=== PATIENT | female | born 1995 | race Caucasian/White ===

== ENCOUNTER 2019-08-14 20:27 | Observation (INO) | payer OTHER, SELFPAY ==
[2019-08-14] VITALS (37 sets, daily range): BP systolic 94–108; BP diastolic 54–73; PULSE 91–125; TEMP 37.2; O2SAT 94–99; BMI 25.7
--- NOTE | 2019-08-14 20:27 | OBADM ---
This patient, Madina Blackman, admitted to the OB room OB Post 117 for observation. Patient/family oriented to hospital policies and general routines including ID bracelet, bed and alarms, visiting hours, pain management, procedures, bathroom and other care routines, personal items, smoking policy, room service/diet, and visiting hours. Patient/Family are encouraged to report perceived risks to care and to ask questions if they do not understand what they are told or what they should do.
--- NOTE | 2019-08-14 20:50 | PC.NURSE ---
Updated Dr. Waterman on patient arrival to OB unit with complaint of back pain and pressure. Patient reports back pain starting at 1500 08/14/2019. Patient reports pink tinged discharge occasionally while wiping. Patient states she has hx of contractions in current . Patient reports emesis today and constant nausea throughout the day today. Vital signs: 107/70, 119 HR, 99.5 F, 16 R. FHT 160's with minimal variability. Uterine irritability present. Orders given.
--- NOTE | 2019-08-14 21:10 | PC.NURSE ---
Plan of care discussed with patient. Patient agrees with plan of care. IV placed and labs collected during the IV placement.
[2019-08-14 21:16] LABS: Basophils Absolute Auto 0.1 K/mm3 (0.0-0.1); Basophils Percent Auto 0.4 % (0.2-1.2); Eosinophils Absolute Auto 0.3 K/mm3 (0-0.3); Eosinophils Percent Auto 1.6 % (0-4.4); Hematocrit 33.2 % (37.0-47.0); Hemoglobin 11.2 g/dL (12.0-15.0); Immature Granulocyte Absolute 0.33 K/mm3 (0.00-0.031); Lymphocytes Absolute Auto 3.05 K/mm3 (0.9-3.2); Lymphocytes Percent Auto 18.4 % (18.3-44.2); Mean Corpuscular HGB Conc 33.7 g/dl (32-36); Mean Corpuscular Hemoglobin 31.5 pg (26-34); Mean Corpuscular Volume 93.5 fl (80-100); Mean Platelet Volume 10.1 fl (7.4-10.4); Monocytes Absolute Auto 1.3 K/mm3 (0.1-0.6); Monocytes Percent Auto 7.5 % (2.6-8.5); Neutrophils Absolute Auto 11.6 K/mm3 (1.3-6.7); Neutrophils Percent Auto 70.1 % (45.5-73.1); Platelet Count Result 195 k/mm3 (150-375); Red Blood Count 3.55 M/mm3 (4.2-5.4); White Blood Count 16.6 K/mm3 (4.5-10.0)
[2019-08-14] MEDS: LACTATED RINGERS 1,000 ML 99 ML IV CONT (21:17)
[2019-08-14] MEDS: ONDANSETRON INJ 4 MG/2 ML VIAL IV PUSH (21:17)
[2019-08-14 21:20] LABS: Add Urine Microscopic? YES; Appearance Urine Cloudy (Clear); Bacteria Urine Trace /hpf; Bilirubin Urine Negative (Negative); Blood Urine 2+ (Negative); Color Urine Straw (Yellow); Glucose Urine UA Negative (Negative); Ketones Urine Negative (Negative); Leukocyte Esterase Ur Trace LEU/UL (Negative); Mucus Urine Rare /lpf; Nitrate Urine Negative (Negative); Protein Urine Negative (Negative); RBC Urine >75 /hpf (0-2); Specific Grav Ur 1.011 (1.001-1.035); Squamous Epithelial Cell Urine Many /hpf (Few); Urobilinogen Urine Negative mg/dL (<2.0)
--- NOTE | 2019-08-14 21:20 | PC.NURSE ---
Patient educated on speculum exam and FFN. Patient agrees with plan of care. Speculum exam performed. No blood visualized during speculum exam. FFN collected.
[2019-08-14 21:27] LABS: Alanine Aminotransferase 10 U/L (4-35); Albumin Level 3.5 g/dL (3.5-5.1); Alkaline Phosphatase 92 U/L (38-126); Aspartate Amino Transferase 18 U/L (14-36); Bilirubin,Total 0.1 mg/dL (0.2-1.3); Blood Urea Nitrogen 5 mg/dL (7-17); Calcium 9.7 mg/dL (8.4-10.2); Carbon Dioxide 23 mmol/L (22-30); Chloride 101 mmol/L (98-107); Estimated Glomerular Filt Rate > 60; Glucose 95 mg/dL (65-105); Potassium 3.6 mmol/L (3.4-5.0); Sodium 133 mmol/L (137-145)
--- NOTE | 2019-08-14 21:48 | PC.NURSE ---
Updated Dr. Waterman with lab results including CBC, CMP and UA. Notified of no blood or spotting noted during speculum exam and SVE Closed/thick/high. Orders given.
[2019-08-14 21:56] LABS: Fetal Fibronectin Negative
[2019-08-14] MEDS: TERBUTALINE SULFATE 1 MG/ML VIAL 0.25 MG SUB-Q (21:57)
--- NOTE | 2019-08-14 22:00 | PC.NURSE ---
Patient updated on plan of care. Patient educated on ceftriaxone, tylenol and terbutaline. Patient agrees with plan of care and denies questions at present time.
[2019-08-14] MEDS: SODIUM CHLORIDE 0.9% IV 250 ML 75 ML (22:24)
--- NOTE | 2019-08-14 22:26 | PC.NURSE ---
Update Dr. Waterman of patient FFN results. Patient contractions resolved, mild uterine irritability present. Patient states improvement in back pain following tylenol. FHT remain reactive. Orders given.
--- NOTE | 2019-08-31 09:21 | PM.OBTRLD ---
OB - Triage/Final Diagnosis Evaluation Laboratory results: Laboratory Tests 08/14/19 08/14/19 08/14/19 21:11 21:11 21:11 WBC 16.6 H RBC 3.55 L Hgb 11.2 L Hct 33.2 L MCV 93.5 MCH 31.5 MCHC 33.7 RDW 13.0 Plt Count 195 MPV 10.1 Immature Gran % (Auto) 2.0 H Neut % (Auto) 70.1 Lymph % (Auto) 18.4 [place] % (Auto) 7.5 Eos % (Auto) 1.6 Baso % (Auto) 0.4 Lymph # (Auto) 3.05 [place] # (Auto) 1.3 H Eos # (Auto) 0.3 Baso # (Auto) 0.1 Abs Immat Gran (auto) 0.33 H Absolute Neuts (auto) 11.6 H Absolute Nucleated RBC 0.0 Nucleated RBC % 0.0 Sodium 133 L Potassium 3.6 Chloride 101 Carbon Dioxide 23 BUN 5 L Creatinine 0.40 L Estim Creat Clear Calc Not Reportable Estimated GFR > 60 Glucose 95 Calcium 9.7 Total Bilirubin 0.1 L AST 18 ALT 10 Alkaline Phosphatase 92 Total Protein 7.0 Albumin 3.5 Urine Color Straw Urine Appearance Cloudy H Urine pH 7.0 Ur Specific [place] 1.011 Urine Protein Negative Urine Glucose (UA) Negative Urine Ketones Negative Ur Blood (Man) 2+ H Urine Nitrate Negative Urine Bilirubin Negative Urine Urobilinogen Negative Leukocyte Esterase Rfl Trace H Urine RBC >75 H Urine WBC 7-9 H Ur Squamous Epith Cells Many H Urine Bacteria Trace Urine Mucus Rare Fibronectin 08/14/19 21:25 WBC RBC Hgb Hct MCV MCH MCHC RDW Plt Count MPV Immature Gran % (Auto) Neut % (Auto) Lymph % (Auto) [place] % (Auto) Eos % (Auto) Baso % (Auto) Lymph # (Auto) [place] # (Auto) Eos # (Auto) Baso # (Auto) Abs Immat Gran (auto) Absolute Neuts (auto) Absolute Nucleated RBC Nucleated RBC % Sodium Potassium Chloride Carbon Dioxide BUN Creatinine Estim Creat Clear Calc Estimated GFR Glucose Calcium Total Bilirubin AST ALT Alkaline Phosphatase Total Protein Albumin Urine Color Urine Appearance Urine pH Ur Specific [place] Urine Protein Urine Glucose (UA) Urine Ketones Ur Blood (Man) Urine Nitrate Urine Bilirubin Urine Urobilinogen Leukocyte Esterase Rfl Urine RBC Urine WBC Ur Squamous Epith Cells Urine Bacteria Urine Mucus Fibronectin Negative Final Diagnosis (1) UTI (urinary tract infection): Code(s): N39.0 - Urinary tract infection, site not specified Status: Acute
== END 2019-08-14 23:59 | disposition home or self-care (01) ==
PROVIDERS: Admitting Provider Obstetrics & Gynecology; Visit Provider Obstetrics & Gynecology
DX: O23.43 Unspecified infection of urinary tract in pregnancy, third trimester (principal); Z3A.28 28 weeks gestation of pregnancy
CPT/HCPCS: 36415; 80053; 81001; 82731; 85025; 87086; 96361; 96365; 96372; 96375; G0378; G0379; J0131; J0696; J2405; J3105; J7050; J7120

== ENCOUNTER 2019-10-18 21:51 | Inpatient (IN) | payer OTHER, SELFPAY ==
[2019-10-18] VITALS (16 sets, daily range): BP systolic 101–133; BP diastolic 71–93; PULSE 85–115; TEMP 36.2; O2SAT 100; BMI 28.2
--- NOTE | 2019-10-18 22:35 | LDADM ---
This patient, Madina Blackman, was admitted to Labor/Delivery/Recovery 105 on 10/18/19 at 21:51. Plans for labor, pain management and were discussed with patient. Patient/family oriented to hospital policies and general routines including ID bracelet, bed and alarms, visiting hours, pain management, procedures, bathroom and other care routines, personal items, smoking policy, room service/diet and guest tray routines, security routines, and visiting hours. Patient/Family are encouraged to report perceived risks to care and to ask questions if they do not understand what they are told or what they should do. See OBIX for further documentation.
[2019-10-18 22:46] LABS: Basophils Absolute Auto 0.1 K/mm3 (0.0-0.1); Basophils Percent Auto 0.3 % (0.2-1.2); Eosinophils Absolute Auto 0.2 K/mm3 (0-0.3); Eosinophils Percent Auto 1.1 % (0-4.4); Hematocrit 33.9 % (37.0-47.0); Hemoglobin 11.5 g/dL (12.0-15.0); Immature Granulocyte Absolute 0.21 K/mm3 (0.00-0.031); Immature Granulocyte Percent A 1.4 % (0-0.5); Lymphocytes Absolute Auto 3.72 K/mm3 (0.9-3.2); Mean Corpuscular HGB Conc 33.9 g/dl (32-36); Mean Corpuscular Hemoglobin 30.2 pg (26-34); Mean Platelet Volume 10.6 fl (7.4-10.4); Monocytes Absolute Auto 1.3 K/mm3 (0.1-0.6); Monocytes Percent Auto 8.7 % (2.6-8.5); Neutrophils Absolute Auto 9.4 K/mm3 (1.3-6.7); Neutrophils Percent Auto 63.5 % (45.5-73.1); Platelet Count Result 293 k/mm3 (150-375); Red Blood Count 3.81 M/mm3 (4.2-5.4); White Blood Count 14.9 K/mm3 (4.5-10.0)
[2019-10-18] MEDS: LACTATED RINGERS 1,000 ML 125 ML IV CONT ×2 (23:24→23:45)
[2019-10-18 23:38] LABS: HIV 1/2 Ab P24 Ag Result Negative (Negative)
[2019-10-19] VITALS (67 sets, daily range): BP systolic 91–136; BP diastolic 48–92; PULSE 72–132; RESP 16–18; TEMP 36.4–36.9; O2SAT 96–100
[2019-10-19 00:02] LABS: Amphetamine Screen Urine Negative (Negative); Barbiturate Screen Urine Negative (Negative); Benzodiazepines Screen Urine Negative (Negative); Cannabinoid Screen Urine Positive (Negative); Cocaine Screen Urine Negative (Negative); Methadone Screen Urine Negative (Negative); Opiate Screen Urine Negative (Negative); Phencyclidine Screen Urine Negative (Negative)
[2019-10-19] MEDS: LACTATED RINGERS 1,000 ML 125 ML IV CONT (01:55)
[2019-10-19] MEDS: OXYTOCIN 30 UNITS/NS 500 ML 30 UNITS/500 ML BAG 999 UNITS IV CONT (02:42)
--- NOTE | 2019-10-19 03:01 | WPDOBADMIT ---
Obstetrics - Admit Note Admission Note: record reviewed. Pertinent additions to the history and/or any subsequent changes in the physical findings that are not consistent with the expected course of the were found. Additions to the history and/or subsequent changes in the physical findings follow. 23 yo comes to L & D at 38 weeks, confirmed by PABLO of 11/01/2018 with PROM at term at 8 pm on 10/18/2019. status reassuring.. Received epidural.GBS negative. Progressed to complete dilation and I was called for delivery.
--- NOTE | 2019-10-19 03:04 | PM.OBPRVD ---
OB - Delivery Note Procedure Delivery date: 10/19/19 Intrapartal events: None Induction method: none Delivery monitor: external FHT and external uterine Route of delivery: Episiotomy description: None Laceration description: Labial (right) Delivery repair: vicryl (2-0) Specimen: Yes Estimated blood loss (mL): 200 Anesthesia type: Epidural Disposition: floor Baby Weeks of gestation at delivery: 38 gender: Female Weight (pounds): 6 Weight (ounces): 5 presentation: vertex (with right hand ) position: Left Occiput Anterior Placenta delivery description: Spontaneous cord vessel description: 3 Vessels score one minute: 8 score five minutes: 9
--- NOTE | 2019-10-19 03:05 | PM.OBDSVD ---
OB - DS: Summary OB Procedures : None OB Procedures Intrapartum: Spontaneous Vag Delivery OB Procedures: : None Peripartum Data Delivery Method: Natural Vaginal Laceration description: Labial (right) Episiotomy description: None complications: none Time Spent with Patient Time attestation: Total time spent providing and/or coordinating discharge services: DS: Data Data Completed and Pending Labs on day of discharge: Labs from last 24 hours 10/18/19 10/18/19 10/18/19 23:18 22:29 22:29 WBC RBC Hgb Hct MCV MCH MCHC RDW Plt Count MPV Immature Gran % (Auto) Neut % (Auto) Lymph % (Auto) [place] % (Auto) Eos % (Auto) Baso % (Auto) Lymph # (Auto) [place] # (Auto) Eos # (Auto) Baso # (Auto) Abs Immat Gran (auto) Absolute Neuts (auto) Absolute Nucleated RBC Nucleated RBC % Urine Opiates Screen Negative Urine Methadone Screen Negative Ur Barbiturates Screen Negative Ur Phencyclidine Scrn Negative Ur Amphetamine Screen Negative U Benzodiazepines Scrn Negative Urine Cocaine Screen Negative U Cannabinoids Screen Positive A RPR HIV 1&2 Ab/P24 Ag 4thGn Negative Blood Type A Positive Antibody Screen Negative 10/18/19 10/18/19 22:29 22:29 WBC 14.9 H RBC 3.81 L Hgb 11.5 L Hct 33.9 L MCV 89.0 MCH 30.2 MCHC 33.9 RDW 14.0 Plt Count 293 D MPV 10.6 H Immature Gran % (Auto) 1.4 H Neut % (Auto) 63.5 Lymph % (Auto) 25.0 [place] % (Auto) 8.7 H Eos % (Auto) 1.1 Baso % (Auto) 0.3 Lymph # (Auto) 3.72 H [place] # (Auto) 1.3 H Eos # (Auto) 0.2 Baso # (Auto) 0.1 Abs Immat Gran (auto) 0.21 H Absolute Neuts (auto) 9.4 H Absolute Nucleated RBC 0.0 Nucleated RBC % 0.0 Urine Opiates Screen Urine Methadone Screen Ur Barbiturates Screen Ur Phencyclidine Scrn Ur Amphetamine Screen U Benzodiazepines Scrn Urine Cocaine Screen U Cannabinoids Screen RPR Pending HIV 1&2 Ab/P24 Ag 4thGn Blood Type Antibody Screen Discharge Plan Discharge Attending physician on discharge: Lavonne Brown Discharging Clinician: Lavonne Brown Patient Disposition: Home, Self-Care Activity: may drive after 2 weeks, as tolerated and pelvic rest Diet: regular Patient Instructions: Antibiotic Form Stand Alone Forms: General Discharge Information Follow-up/Referrals: Brandon Waterman MD [Physician] - Discharge Medications: New docusate sodium 100 mg Capsule 100 mg PO BID PRN (Reason: Constipation) Qty: 60 RF: 0 polysaccharide iron complex 150 mg iron Capsule 150 mg PO BIDWM Qty: 60 RF: 0 ibuprofen 600 mg Tablet 600 mg PO Q6H PRN (Reason: Cramping) Qty: 60 RF: 0 Continued ergocalciferol (vitamin D2) [Vitamin D2] 1,250 mcg (50,000 unit) Capsule 50,000 unit PO 2XW RF: 0 ferrous sulfate 250 mg (50 mg iron) Tablet Extended Release 250 mg PO DAILY RF: 0 PNV cmb#95-ferrous fumarate-FA [] 28 mg iron- 800 mcg Tablet 1 tablet PO DAILY RF: 0 Date of admission: 10/18/19 21:51 Primary Care Provider: UNKNOWN,DOCTOR Admitting Provider: Brandon Waterman Attending physician on admission: Brandon Waterman
[2019-10-19] MEDS: OXYTOCIN 30 UNITS/NS 500 ML 30 UNITS/500 ML BAG 125 UNITS IV CONT (03:31)
[2019-10-19] MEDS: IBUPROFEN 600 MG TABLET PO ×3 (04:33→21:45)
[2019-10-19] MEDS: WITCH HAZEL 40 PADS 1 PAD TOPICAL ×2 (04:33→15:46)
[2019-10-19] MEDS: BENZOCAINE 20% AER SPR (*SP) 56 GM CAN 1 SPRAY TOPICAL ×2 (04:33→15:46)
--- NOTE | 2019-10-19 05:20 | OBPPTRN ---
Patient transferred to post room #291 via wheelchair. Support person present. Oriented to unit, room, information board, rooming in, admission packet and security measures. Patient verbalizes understanding. with patient.
[2019-10-19 08:26] LABS: Rapid Plasma Reagin Non-Reactive (NonReactive)
[2019-10-19] MEDS: DOCUSATE SODIUM 100 MG CAPSULE PO ×2 (08:33→15:46)
[2019-10-19] MEDS: MULTIVIT/MIN/PREN/FOL AC/IRON TABLET 1 TAB PO (08:33)
[2019-10-20 04:43] LABS: Hemoglobin 9.6 g/dL (12.0-15.0)
[2019-10-20 09:05] VITALS: BP 97/65; PULSE 75; RESP 18; TEMP 37.2; O2SAT 100
[2019-10-20] MEDS: POLYSACCHARIDE IRON COMPLEX 150 MG CAPSULE PO (09:12)
[2019-10-20] MEDS: DOCUSATE SODIUM 100 MG CAPSULE PO (09:12)
[2019-10-20] MEDS: IBUPROFEN 600 MG TABLET PO (09:12)
--- NOTE | 2019-10-20 13:17 | PM.OBPNVD ---
OB - PN: Subj Subjective Date/time seen: 10/20/19 13:17 Patient comments: no complaints, pain well controlled and tolerating diet [place] baby status: doing well and bottle feeding well feeding status: exclusively bottle feeding OB - PN: Obj Data Labs CBC & Chem 7: 10/20/19 04:21 Labs: Laboratory Results - last 24 hr 10/20/19 04:21 Hgb 9.6 L Hct 29.0 L OB - PN A/P Plan day: 1 Plan: discharge home and follow up 6 weeks Time Spent With Patient Time: Total time spent is greater than 50% in coordination of care (as documented) at patient's floor/unit and/or counseling patient: Time with patient: 15 - 25 minutes Review of Systems Constitutional: Constitutional: Reports no additional constitutional complaints Cardiovascular: Cardiovascular: Reports no additional cardiovascular complaints Respiratory: Respiratory: Reports no additional respiratory complaints Gastrointestinal: Gastrointestinal: Reports no additional gastrointestinal complaints Genitourinary: Genitourinary: Reports no additional female genitourinary complaints Exam Const: General: comfortable, no acute distress, alert and awake Resp: Effort & Inspection: normal respiratory effort Auscultation: clear to auscultation bilaterally Cardio: Rate: regular rate GI: Auscultation: normal bowel sounds Psych: Appearance: grossly normal
--- NOTE | 2019-10-20 13:17 | PM.OBDSVD ---
OB - DS: Summary OB Procedures : None OB Procedures Intrapartum: Spontaneous Vag Delivery OB Procedures: : None Peripartum Data Delivery Method: Natural Vaginal Laceration description: Labial (right) Time Spent with Patient Time attestation: Total time spent providing and/or coordinating discharge services: Exam Const: General: comfortable, no acute distress, alert and awake Resp: Effort & Inspection: normal respiratory effort Auscultation: clear to auscultation bilaterally Cardio: Rate: regular rate GI: GI Palp: Yes Soft to palpation Other: Fundus firm below umbilicus Psych: Appearance: grossly normal DS: Data Data Completed and Pending Labs on day of discharge: Labs from last 24 hours 10/20/19 04:21 Hgb 9.6 L Hct 29.0 L Discharge Plan Discharge Attending physician on discharge: Lavonne Brown Discharging Clinician: Lavonne Brown Patient Disposition: Home, Self-Care Activity: may drive after 2 weeks, as tolerated and pelvic rest Diet: regular Patient Instructions: Antibiotic Form Stand Alone Forms: General Discharge Information Follow-up/Referrals: Brandon Waterman MD [Physician] - Discharge Medications: New docusate sodium 100 mg Capsule 100 mg PO BID PRN (Reason: Constipation) Qty: 60 RF: 0 polysaccharide iron complex 150 mg iron Capsule 150 mg PO BIDWM Qty: 60 RF: 0 ibuprofen 600 mg Tablet 600 mg PO Q6H PRN (Reason: Cramping) Qty: 60 RF: 0 Continued ergocalciferol (vitamin D2) [Vitamin D2] 1,250 mcg (50,000 unit) Capsule 50,000 unit PO 2XW RF: 0 ferrous sulfate 250 mg (50 mg iron) Tablet Extended Release 250 mg PO DAILY RF: 0 PNV cmb#95-ferrous fumarate-FA [] 28 mg iron- 800 mcg Tablet 1 tablet PO DAILY RF: 0 Date of admission: 10/18/19 21:51 Primary Care Provider: UNKNOWN,DOCTOR Admitting Provider: Brandon Waterman Attending physician on admission: Brandon Waterman
--- NOTE | 2019-10-20 14:00 | PC.NURSE ---
Patient viewed the discharge video Mother & Baby Care, The First Two Weeks . Patient was given the opportunity and encouraged to ask questions. Patient verbalized understanding of information shared and has been given the mother/baby guide for home reference.
== END 2019-10-20 14:49 | disposition home or self-care (01) | DRG 560 ==
LOC: ANHLDR 10-19 03:07 → ANHOB2 10-19 11:19 → ANHLDR 10-23 18:21 → ANHOB2 10-23 18:21
PROVIDERS: Admitting Provider Obstetrics & Gynecology; Visit Provider Obstetrics & Gynecology
DX: O99.324 Drug use complicating childbirth (principal); Z37.0 Single live birth; Z3A.38 38 weeks gestation of pregnancy; F12.90 Cannabis use, unspecified, uncomplicated; O32.6XX0 Maternal care for compound presentation, not applicable or unspecified; O70.0 First degree perineal laceration during delivery
CPT/HCPCS: 36415; 80307; 85014; 85018; 85025; 86592; 86703; 86850; 86900; 86901; A9270; G0432; J2590; J2795; J7120

== ENCOUNTER 2021-06-16 14:15 | Outpatient (CLI) | payer OTHER, SELFPAY ==
--- NOTE | ~2021-06-16 | US_ITS ---
EXAMINATION: US OB <= 14 weeks fetus EXAM DATE: 06/16/2021 14:58 INDICATION: Supervision of normal . 1st trimester. TECHNIQUE: Pelvic obstetrical transabdominal sonogram was performed by a technologist. There are mu ltiple grayscale and Doppler images available for interpretation. There are no earlier studies of th is gestation for comparison. FINDINGS: Uterus measures 12.7 x 10.2 x 8.6 cm. There is intrauterine gestation sac. pole wit h heart rate confirmed at 165 beats per minute. The 6.5 mm crown-rump length corresponds to estimate d gestational age by ultrasound of 12 weeks 6 days, estimated date of confinement 12/23/2021. There i s no sonographic evidence of subchorionic hemorrhage. Ovaries not specifically identified. IMPRESSION: Live intrauterine , age by ultrasound 12 weeks 6 days. Reviewed, dictated and finalized at location A. [employer] PROGRAM COORDINATOR
== END 2021-06-16 14:16 | disposition home or self-care (01) ==
LOC: ANHIMG 14:19
PROVIDERS: PCP Family Medicine; Visit Provider Family Medicine
DX: Z34.01 Encounter for supervision of normal first pregnancy, first trimester (principal); Z3A.12 12 weeks gestation of pregnancy
CPT/HCPCS: 76801